=== PATIENT | female | born 1950 | race Caucasian/White ===

== ENCOUNTER → 2017-02-05 12:23 | Outpatient (CLI) | payer OTHER ==
[2016-02-16 09:54] VITALS: BMI 27.9
[~2017-02-05 12:23] MED LIST: BAYER CHEWABLE81 MG PO; CO Q-1050 MG PO; GLIPIZIDE10 MG PO; GLUCOPHAGE1000 MG PO; HYDROCODONE-APA1 TAB PO; KLOR-CON M2020 MEQ PO; LANTUS INSULIN10 ML SC; LASIX40 MG PO; NITROSTAT0.4 MG SL; PREDNISONE10 MG PO
== END | disposition home or self-care (01) ==
LOC: D.MAMMO 01-25 15:00
DX: Z12.31 Encounter for screening mammogram for malignant neoplasm of breast (principal)

== ENCOUNTER → 2019-02-21 08:30 | Outpatient (CLI) | payer MEDICARE, OTHER ==
[2016-02-16 09:54] VITALS: BMI 27.9
--- NOTE | 2019-02-25 16:04 | EC ---
PATIENT:BIMAL RODRIGUEZ DATE OF SERVICE: 02/21/19 SEX: F MEDICAL RECORD: [id number] DATE OF : 54 LOCATION:D[facility] AGE OF PATIENT: 68 ADMISSION DATE: 02/21/19 REFERRING PHYSICIAN: INTERPRETING PHYSICIAN: AMEE HANNAH MD ECHOCARDIOGRAM REPORT ECHO CHARGES 4 ECHO COMPLETE Date: 02/21/19 CLINICAL DIAGNOSIS: CARDIOMYOPATHY/LVH/ABNORMAL EKG H/O CAD/CABG/HTN ECHOCARDIOGRAPHIC MEASUREMENTS (adult normal given) AC root (d.<3.7cm) 3.2 cm LV Septum d (<1.2 cm> 1.2 cm Valve Excursion 1.8 cm LV Septum (systole) 1.5 cm Left Atria (s.<4.0cm> 3.1 cm LVPW d(<1.2cm) 1.1 cm RV (d.<2.3cm) 2.0 cm LVPW (sytole) 1.5 cm LV diastole(<5.6CM) 4.5 cm MV E-F(>70mm/sec) cm LV systole 3.1 cm LVOT Diameter 1.6 cm MV exc.(>10mm) cm Est.ejection fraction (50-75%) % DOPPLER: LVIT cm/sec A 103 cm/sec E 65.0 cm/sec LA cm/sec RVSP 35.3 mmHg LVOT 107 cm/sec AOP1/2T m/s Asc. Ao 164 cm/sec RVOT 80.0 cm/sec RA cm/sec PA 103 cm/sec AV Gradient Peak 11.0 mmHg AV Mean 5.0 mmHg AV Area 1.3 cm MV Gradient Peak 5.1 mmHg MV Mean 1.8 mmHg MV Area cm COMMENTS: OP - HC Playback Operator: 1 CHELA WILLIAMS Child Welfare Consultant: 3 Dr. Mckeon TAPE# PACS Pericardial Effusion N DATE OF SERVICE: No LVH. LV internal dimensions are normal. LV is mildly globally hypo with reduced EF, estimated EF 40% to 45%. Aortic valve sclerosis without stenosis by Doppler interrogation. Left atrium is normal at 3.0 cm. Mitral valve shows no prolapse. Mild MR. Right-sided chambers are grossly normal. Mild TR. TRANSINT:[id number] Voice Confirmation ID: [id number] DOCUMENT ID: [id number] ECHOCARDIOGRAM REPORT [id number] BIMAL RODRIGUEZ,AMEE Patel MD at 1604 CC: [id number] DICTATION DATE: 02/24/191415 GAME ROOM ATTENDANT: 02/24/19 142 [facility]P CLI 02/21/19 [id number] [place] [address]
== END | disposition home or self-care (01) ==
LOC: D.HCCECHO 08:30
PROVIDERS: ATTEND Internal Medicine Interventional Cardiology
DX: I34.0 Nonrheumatic mitral (valve) insufficiency (principal)

== ENCOUNTER → 2019-03-17 09:37 | Outpatient (CLI) | payer MEDICARE, OTHER ==
[2016-02-16 09:54] VITALS: BMI 27.9
--- NOTE | ~2019-03-17 | ST ---
PATIENT:BIMAL RODRIGUEZ MEDICAL RECORD: [id number] SEX: F LOCATION:[facility] ORDER #: ADMISSION DATE: 03/17/19 AGE OF PATIENT: 68 REFERRING PHYSICIAN: INTERPRETING PHYSICIAN: SLO KYLE MD DATE OF SERVICE: 03/17/2019 PROCEDURE: Nuclear stress test. INDICATION: Angina, hypertension, hyperlipidemia, diabetes. She was exercised on standard Lexiscan protocol with 33 mCi of sestamibi injected at peak stress, 11 mCi used previously for rest images. FINDINGS: Gated SPECT reveals preserved ejection fraction at 61% with good wall motion and thickening and brightening throughout all segments. SPECT imaging Cardiolite was used as myocardial fusion agent. There is homogeneous uptake throughout all segments at rest and stress with no evidence of inducible ischemia or previous infarction. OVERALL IMPRESSION: 1. This is a normal nuclear stress test with no evidence of inducible ischemia or previous infarction. 2. Gated SPECT reveals a preserved ejection fraction at 61%. In this patient with ongoing symptomatology, the current scan does not suggest the presence of hemodynamically significant coronary artery disease. Evaluate noncardiac etiology of chest pain. TRANSINT:[id number] Voice Confirmation ID: [id number] DOCUMENT ID: [id number] SOL KYLE MD CC: [id number] DICTATION DATE: 03/19/19 1603 LAW INSTRUCTOR: 03/20/19 0652 [facility] CLI 03/17/19 [id number] [place] [address]
== END | disposition home or self-care (01) ==
LOC: D.HCCARDIO 09:37
PROVIDERS: ATTEND Internal Medicine Interventional Cardiology
DX: I20.9 Angina pectoris, unspecified (principal)